=== PATIENT | female | born 1990 | race African-American/Black ===

== ENCOUNTER 2018-10-19 09:51 | Emergency (ER) | payer OTHER ==
[~2018-10-19] VITALS: Ht 152.4 cm; Wt 93.0 kg
[~2018-10-19 09:51] MED LIST: ALBUTEROL2.5 MG/0.5 IH; APAP500 PO; CLARITIN10 MG PO; DERMOPLAST SPRA56 ML; DERMOPLAST SPRA56 ML TOP; FLINTSTONES M100 MCG PO; HYDROCORTISONE30 G9 TOP; IBUPROFEN 600600 M1 PO; IBUPROFEN 800800 M1; IBUPROFEN 800800 M1 PO; IRON325; LANOLIN56 GM; LANOLIN56 GM TOP; MACROBID 100 M100 M1 PO; NAPROSYN500 MG PO; NORCO 5-325 TA1 EACH PO; NORFLEX100 MG PO; PHENERGAN 25 MG25 MG PO; PREDNISONE 20 M20 MG PO; PRENATAL; PRENATAL PO; PRENATAL TABLE1 EAC3 PO; PROVENTIL; PROVENTIL HFA6.7 G1 INH; TRINATE TABLET1 TAB; TRINATE TABLET1 TAB PO; TUCKS MEDICATE1 EAC1; TUCKS1 EAC1 TOP; ZOFRAN 4 MG ORAL4 M1 DIS
[2018-10-19 10:33] LABS: ABSOLUTE NEUTROPHILS 2.1 thou/uL (1.4-8.2); BASOPHILS 1.2 % (0.0-2.0); EOSINOPHILS 2.2 % (0.0-3.0); HEMATOCRIT 39.1 % (37.0-47.0); HEMOGLOBIN 12.9 gm/dL (12.0-15.0); LYMPHOCYTES 40.1 % (24.0-44.0); MCH 26.5 pg (26.0-34.0); MCV 80.1 fL (80.0-100.0); MONOCYTES 6.9 % (1.0-8.0); PLATELET COUNT 302 thou/uL (150-400); POLYS 49.6 % (36.0-66.0); RBC 4.87 mil/uL (4.20-5.00); RDW 14.6 % (10.5-14.5); WBC 4.3 thou/uL (4.0-11.0)
[2018-10-19 10:40] LABS: CALCIUM 9.6 mg/dL (8.5-10.1); CREATININE 0.7 mg/dL (0.6-1.0); POTASSIUM 3.9 mmol/L (3.5-5.1)
[2018-10-19 10:47] LABS: ALBUMIN 4.2 g/dL (3.4-5.0); TOTAL BILIRUBIN 0.6 mg/dL (<0.1-1.0); TOTAL PROTEIN 8.6 g/dL (6.4-8.2)
[2018-10-19 10:49] LABS: URINE BILIRUBIN NEGATIVE (Negative); URINE BLOOD NEGATIVE (Negative); URINE CLARITY CLEAR; URINE COLOR YELLOW; URINE GLUCOSE-RANDOM* NEGATIVE (Negative); URINE KETONES NEGATIVE (Negative); URINE LEUKOCYTES 1+ (Negative); URINE NITRITE NEGATIVE (Negative); URINE PROTEIN (DIPSTICK) NEGATIVE (Negative); URINE SPECIFIC GRAVITY 1.025 (1.005-1.035); URINE UROBILINOGEN 0.2 E.U./dl (0.2-1.0)
[2018-10-19 11:01] LABS: CASTS None Seen /LPF (None Seen); CRYSTALS None Seen /LPF (None Seen); SQUAMOUS >10 Many /LPF (0-3); URINE WBC 0-5 Rare /HPF (0-5)
[2018-10-19 11:02] LABS: BACTERIA 1-9 Few /HPF (None Seen); URINE RBC None Seen /HPF (0-2)
[2018-10-19] MEDS ORDERED: KEFLEX500 M1 PO (13:18)
[2018-10-19] MEDS ORDERED: NAPROSYN500 MG PO (13:18)
[2018-10-19] MEDS ORDERED: FLAGYL500 M1 PO (13:37)
[2018-10-19 13:52] VITALS: BP 154/98
== END 2018-10-19 13:56 | disposition home or self-care (01) ==
LOC: ER 09:51
PROVIDERS: Emergency Medicine
DX: N76.0 Acute vaginitis (principal); B96.89 Other specified bacterial agents as the cause of diseases classified elsewhere; D25.9 Leiomyoma of uterus, unspecified; N39.0 Urinary tract infection, site not specified; J45.909 Unspecified asthma, uncomplicated; Z90.49 Acquired absence of other specified parts of digestive tract

== ENCOUNTER 2019-02-08 09:27 | Emergency (ER) | payer OTHER ==
[~2019-02-08] VITALS: Ht 152.4 cm; Wt 93.0 kg
--- NOTE | ~2019-02-08 | EMS ---
[facility] [address] [place] [address] EMS Patient Care Report Name: JOSR RUTLEDGE Room #: [facility]..#: [id number] Admission: ������������������ Attend Phys: Discharge: ������������������ Date of : [birth year] Report #: [id number] THIS REPORT FOR: //name// Report Transmitted: 02/08/2019 09:09 EMS Care Summary [facility] MED-ACT Incident [id number] @ 02/08/2019 08:46 Incident Location [address] [place] [address] Patient JOSR RUTLEDGE Female, 28 Years 1990 Patient Address [address] [place] [address] Patient History Asthma,Anxiety, Patient Allergies No known allergies, Patient Medications None Reported, Chief Complaint Chest pain Disposition Transported No Lights/[place] Dispatch Reason Chest Pain (Non-Traumatic) Transported To [facility] Narrative On EMS arrival, pt found sitting in an office chair. Pt reports that she woke up around 0530 and had 9 out of 10 sharp chest pain in the center of her chest. She reports that the pain didn't radiate anywhere, however reports she also had a shooting pain in her left leg that started around the same time. Pt [facility] [address] [place] [address] EMS Patient Care Report Name: JOSR RUTLEDGE Room #: [facility]..#: [id number] Admission: ������������������ Attend Phys: Discharge: ������������������ Date of : [birth year] Report #: [id number] reports that her pain would last for about 30 seconds, after which it would gradually subside. She reports that the pain has been "coming and going" every now and then since this morning. Pt reports that she has had pain like this before with her anxiety. Pt reports feeling numbness and tingling in her hands after each incident as well. Pt denies any shortness of breath, nausea, vomiting, weakness or dizziness. Pt denies any pain at this time, reporting that her pain had gone away just prior to EMS arrival. Pt able to ambulate to the cot. Pt transported to ED room 10. Pt transferred her self via scooting to the ED bed. Pt left with rails up and staff in attendance. Initial Vitals @09:14P: 84,BP: 109/85,SpO2: 100, @09:03P: 94,BP: 132/96,SpO2: 100,MN Suspected: false @PTAP: 95,R: 20,BP: 148/99,Pain: 6/10,GCS: 15,SpO2: 97,Revised Trauma: 12, @09:02P: 91,R: 20,BP: 136/97,Pain: 0/10,GCS: 15,SpO2: 98,Revised Trauma: 12, Assessments @08:58MENTAL:Person Oriented,Time Oriented,Event Oriented,Place Oriented,SKIN:No Abnormalities,HEENT:Head/Face: No Abnormalities,Eyes: No Abnormalities,Neck/Airway: No Abnormalities,LUNG SOUNDS:ABDOMEN:PELVIS//GI:EXTREMITIES:Left Arm: Abnormal Sensation,Right Arm: Abnormal Sensation,PULSE:NEURO:No Abnormalities, Impression Chest Pain / Discomfort Procedures @09:0312-Lead ECGResponse: UnchangedSucceeded Timeline [employer],BP: 148/99 M,PULSE: 95,RR: 20 R,SPO2: 97 Ox,ETCO2: ,BG: ,PAIN: 6,GCS: 15, 08:46,Call Received 08:46,Psap Call 08:46,Dispatched 08:46,En Route 08:53,On Scene 08:57,At Patient 09:02,BP: 136/97 M,PULSE: 91,RR: 20 R,SPO2: 98 Ox,ETCO2: ,BG: ,PAIN: 0,GCS: 15, 09:03,12-Lead ECG,Response: UnchangedSucceeded, 09:03,BP: 132/96 M,PULSE: 94,RR: R,SPO2: 100 Ox,ETCO2: ,BG: ,PAIN: ,GCS: , 09:05,Depart Scene 09:14,BP: 109/85 M,PULSE: 84,RR: R,SPO2: 100 Ox,ETCO2: ,BG: ,PAIN: ,GCS: , 09:23,At Destination 09:35,Call Closed [facility] [address] [address] EMS Patient Care Report Name: JOSR RUTLEDGE DAVID Room #: [facility]..#: [id number] Admission: ������������������ Attend Phys: Discharge: ������������������ Date of : [birth year] Report #: [id number] Disclaimer v1.1 Copyright 2019 [employer] This EMS Care Summary contains data elements from the applicable legal record (which may be displayed differently). It is designed to provide pertinent information for the following purposes: continuity of care, clinical quality, and state data reporting. The complete legal record is available to ED staff and administrators of the receiving hospital in [employer] Patient Tracker. All data is provided "as is."
--- NOTE | ~2019-02-08 | EMS ---
[facility] [address] [place] [address] EMS Patient Care Report Name: JOSR RUTLEDGE [id number] Admission: 02/08/19 ������������������ Attend Phys: Discharge: ������������������ Date of : [birth year] Report #: [id number] THIS REPORT FOR: //name// Report Transmitted: 02/08/2019 10:09 EMS Care Summary [facility] MED-ACT Incident [id number] @ 02/08/2019 08:46 Incident Location [address] [place] [address] Patient JOSR RUTLEDGE Female, 28 Years 1990 Patient Address [address] [place] [address] Patient History Asthma,Anxiety, Patient Allergies No known allergies, Patient Medications None Reported, Chief Complaint Chest pain Disposition Transported No Lights/[place] Dispatch Reason Chest Pain (Non-Traumatic) Transported To [facility] Narrative On EMS arrival, pt found sitting in an office chair. Pt reports that she woke up around 0530 and had 9 out of 10 sharp chest pain in the center of her chest. She reports that the pain didn't radiate anywhere, however reports she also had a shooting pain in her left leg that started around the same time. Pt [facility] [address] [place] [address] EMS Patient Care Report Name: JOSR RUTLEDGE Room #: REG [facility].#: [id number] Admission: 02/08/19 ������������������ Attend Phys: Discharge: ������������������ Date of : [birth year] Report #: [id number] reports that her pain would last for about 30 seconds, after which it would gradually subside. She reports that the pain has been "coming and going" every now and then since this morning. Pt reports that she has had pain like this before with her anxiety. Pt reports feeling numbness and tingling in her hands after each incident as well. Pt denies any shortness of breath, nausea, vomiting, weakness or dizziness. Pt denies any pain at this time, reporting that her pain had gone away just prior to EMS arrival. Pt able to ambulate to the cot. Pt transported to ED room 10. Pt transferred her self via scooting to the ED bed. Pt left with rails up and staff in attendance. Initial Vitals @09:14P: 84,BP: 109/85,SpO2: 100, @09:03P: 94,BP: 132/96,SpO2: 100,VT Suspected: false @PTAP: 95,R: 20,BP: 148/99,Pain: 6/10,GCS: 15,SpO2: 97,Revised Trauma: 12, @09:02P: 91,R: 20,BP: 136/97,Pain: 0/10,GCS: 15,SpO2: 98,Revised Trauma: 12, Assessments @08:58MENTAL:Person Oriented,Time Oriented,Event Oriented,Place Oriented,SKIN:No Abnormalities,HEENT:Head/Face: No Abnormalities,Eyes: No Abnormalities,Neck/Airway: No Abnormalities,LUNG SOUNDS:ABDOMEN:PELVIS//GI:EXTREMITIES:Left Arm: Abnormal Sensation,Right Arm: Abnormal Sensation,PULSE:NEURO:No Abnormalities, Impression Chest Pain / Discomfort Procedures @09:0312-Lead ECGResponse: UnchangedSucceeded Timeline [employer] DES[employer]ER,BP: 148/99 M,PULSE: 95,RR: 20 R,SPO2: 97 Ox,ETCO2: ,BG: ,PAIN: 6,GCS: 15, 08:46,Call Received 08:46,Psap Call 08:46,Dispatched 08:46,En Route 08:53,On Scene 08:57,At Patient 09:02,BP: 136/97 M,PULSE: 91,RR: 20 R,SPO2: 98 Ox,ETCO2: ,BG: ,PAIN: 0,GCS: 15, 09:03,12-Lead ECG,Response: UnchangedSucceeded, 09:03,BP: 132/96 M,PULSE: 94,RR: R,SPO2: 100 Ox,ETCO2: ,BG: ,PAIN: ,GCS: , 09:05,Depart Scene 09:14,BP: 109/85 M,PULSE: 84,RR: R,SPO2: 100 Ox,ETCO2: ,BG: ,PAIN: ,GCS: , 09:23,At Destination 09:35,Call Closed [facility] [address] [place] [address] EMS Patient Care Report Name: JOSR RUTLEDGE Room #: REG [facility].#: [id number] Admission: 02/08/19 ������������������ Attend Phys: Discharge: ������������������ Date of : [birth year] Report #: [id number] Disclaimer v1.1 Copyright 2019 [employer] This EMS Care Summary contains data elements from the applicable legal record (which may be displayed differently). It is designed to provide pertinent information for the following purposes: continuity of care, clinical quality, and state data reporting. The complete legal record is available to ED staff and administrators of the receiving hospital in [employer] Patient Tracker. All data is provided "as is."
[~2019-02-08 09:27] MED LIST changes: +FLAGYL500 M1 PO; +KEFLEX500 M1 PO
[2019-02-08 10:03] LABS: ABSOLUTE NEUTROPHILS 2.6 thou/uL (1.4-8.2); BASOPHILS 1.2 % (0.0-2.0); EOSINOPHILS 3.5 % (0.0-3.0); HEMATOCRIT 39.8 % (37.0-47.0); HEMOGLOBIN 12.7 gm/dL (12.0-15.0); LYMPHOCYTES 25.3 % (24.0-44.0); MCH 25.8 pg (26.0-34.0); MCHC 31.9 g/dL (28.0-37.0); MCV 80.8 fL (80.0-100.0); MONOCYTES 7.2 % (1.0-8.0); PLATELET COUNT 323 thou/uL (150-400); POLYS 62.8 % (36.0-66.0); RBC 4.93 mil/uL (4.20-5.00); RDW 14.5 % (10.5-14.5); WBC 4.1 thou/uL (4.0-11.0)
[2019-02-08 10:17] LABS: BUN 9 mg/dL (7-18); CALCIUM 9.4 mg/dL (8.5-10.1); CO2 25 mmol/L (21-32); CREATININE 0.7 mg/dL (0.6-1.0); GLUCOSE 92 mg/dL (74-106); SGOT 21 U/L (15-37); SGPT 36 U/L (30-65); TOTAL BILIRUBIN 0.3 mg/dL (<0.1-1.0); TOTAL PROTEIN 8.5 g/dL (6.4-8.2); TROPONIN-I <0.06 ng/mL (<0.06)
[2019-02-08] MEDS ORDERED: APAP650 PO (10:27)
[2019-02-08] MEDS ORDERED: VENTOLIN HFA 1818 GM INH (12:45)
[2019-02-08 12:49] VITALS: BP 128/68
[2019-02-08 13:34] LABS: ANION GAP 10 mmol/L (7-16); CHLORIDE 104 mmol/L (98-107); POTASSIUM 3.8 mmol/L (3.5-5.1); SODIUM 139 mmol/L (136-145)
--- NOTE | 2019-02-09 11:50 | EKG ---
[place] [address] [address] [facility] [place] [address] ELECTROCARDIOGRAM REPORT Name: JOSR RUTLEDGE Room #: [facility]#: [id number] ������������������ Admission: 02/08/19 ������������������ Attend Phys: Discharge: 02/08/19 ������������������ Date of : [birth year] Report #: [id number] ����������������������������������������������������������������� [id number] THIS REPORT FOR: //name// [facility] ED Test Date: 2019-02-08 Test Time: 09:28:57 Pat Name: JOSR RUTLEDGE Department: Room: Gender: F Paramedic Rn: ESTUARDO : 1990 Requested By: Lyric Vega Order Number: [id number] MD: Ramos Edgar Measurements Intervals Brady Rate: 91 P: 47 IA: 145 QRS: 45 QRSD: 91 T: -3 QT: 360 QTc: 443 Interpretive Statements Sinus rhythm Borderline T abnormalities, anterior leads Compared to ECG 01/17/2016 14:33:59 No significant changes Electronically Signed On 02-09-2019 11:50:21 CDT by Ramos Edgar [email or web address] ��������������������������������������������� <ELECTRONICALLY SIGNED> ���������������������������������������� By: Ramos Edgar MD, [facility] ��������������������������������������������� 02/09/19 1150 0928 7 Ramos Edgar MD, FACC /EPI
== END 2019-02-08 12:50 | disposition home or self-care (01) ==
LOC: ER 09:27
PROVIDERS: Emergency Medicine Emergency Medical Services
DX: R07.89 Other chest pain (principal); M25.539 Pain in unspecified wrist; J45.909 Unspecified asthma, uncomplicated; F41.9 Anxiety disorder, unspecified; Z90.49 Acquired absence of other specified parts of digestive tract

== ENCOUNTER 2019-06-04 17:16 | Emergency (ER) | payer OTHER ==
[~2019-06-04] VITALS: Ht 152.4 cm; Wt 98.4 kg
[~2019-06-04 17:16] MED LIST changes: +APAP650 PO; +VENTOLIN HFA 1818 GM INH
[2019-06-04 17:27] VITALS: BP 147/102
[2019-06-04] MEDS ORDERED: FLOVENT HFA12 GM (17:32)
[2019-06-04] MEDS ORDERED: CYCLOBENZAPRINE5 MG PO (18:00)
[2019-06-04] MEDS ORDERED: LIDOCAINE PAIN1 EACH TOP (18:00)
[2019-06-04] MEDS ORDERED: MOBIC7.5 MG PO (18:00)
== END 2019-06-04 18:00 | disposition home or self-care (01) ==
LOC: ER 17:16
DX: S39.012A Strain of muscle, fascia and tendon of lower back, initial encounter (principal); M54.89 Other dorsalgia; V89.2XXA Person injured in unspecified motor-vehicle accident, traffic, initial encounter; Y93.89 Activity, other specified; Y92.89 Other specified places as the place of occurrence of the external cause; Y99.8 Other external cause status

== ENCOUNTER 2021-01-29 09:18 | Emergency (ER) | payer OTHER ==
[~2021-01-29] VITALS: Ht 152.4 cm; Wt 97.5 kg
[~2021-01-29 09:18] MED LIST changes: +CYCLOBENZAPRINE5 MG PO; +FLOVENT HFA12 GM; +LIDOCAINE PAIN1 EACH TOP; +MOBIC7.5 MG PO
[2021-01-29 09:22] VITALS: BP 117/77
== END 2021-01-29 09:54 | disposition home or self-care (01) ==
LOC: ER 09:18
DX: U07.1 COVID-19 (principal); J45.909 Unspecified asthma, uncomplicated; Z79.51 Long term (current) use of inhaled steroids